=== PATIENT | male | born 1990 | race Caucasian/White ===

== ENCOUNTER 2019-06-28 15:13 | Emergency (ER) | payer OTHER, SELFPAY ==
[2019-06-28 15:42] LABS: #Eosinphils 0.4 thou/uL (0.0-0.7); #Lymphocytes 2.1 thou/uL (1.20-3.40); #Monocytes 0.6 thou/uL (0.11-0.59); #Neutrophils 4.5 thou/uL (1.40-6.50); %Basophils 0.5 % (0.0-1.0); %Eosinophils 5.4 % (0.0-10.0); %Lymphocytes 27.4 % (21.0-51.0); %Monocytes 7.4 % (0.0-10.0); %Neutrophils 59.4 % (42.0-75.0); Hemoglobin 14.9 g/dL (14.0-18.0); Mean Corpuscular HGB CONC 35.1 g/dL (32.0-36.0); Mean Corpuscular Volume 88.4 fL (78.0-98.0); Mean Platelet Volume 6.5 fL (7.4-10.4); Platelet Count 364 thou/uL (130-400); RBC Distribution Width 11.8 % (11.5-14.5); Red Blood Cell (RBC) Count 4.82 mill/uL (4.70-6.10); White Blood Cell (WBC) Count 7.5 thou/uL (4.8-10.8)
[2019-06-28 17:09] LABS: ALT (SGPT) 29 U/L (8-55); AST (SGOT) 16 U/L (5-34); Albumin 4.3 g/dL (3.5-5.0); Alkaline Phosphatase 71 U/L (40-110); Anion Gap 12 mmol/L (10-20); BUN (Urea Nitrogen) 12 mg/dL (8.9-20.6); Bilirubin, Total 0.4 mg/dL (0.2-1.2); CRP (Inflammatory) 0.55 mg/dL (= or < 0.5); Calc. Creatinine Clearance 0 mL/min (70-130); Calcium 9.4 mg/dL (7.8-10.44); Carbon Dioxide 26 mmol/L (22-29); Chloride 102 mmol/L (98-107); Estimated GFR-MDRD Greater than 90; Globulin 3.1 g/dL (2.4-3.5); Glucose 95 mg/dL (70-105); Potassium 3.7 mmol/L (3.5-5.1); Protein, Total 7.4 g/dL (6.0-8.3); Sodium 136 mmol/L (136-145)
--- NOTE | 2019-06-28 17:36 | RAD ---
LEFT TIBIA AND FIBULA: HISTORY: Left leg wound with edema and pain. FINDINGS: Evidence of skin disruption anteriorly. No fracture. No osseous abnormality. IMPRESSION: No evidence of osseous abnormality. POS: [id number]
== END 2019-06-28 18:45 | disposition home or self-care (01) ==
LOC: ERS 15:13
DX: L97.329 Non-pressure chronic ulcer of left ankle with unspecified severity (principal); F41.9 Anxiety disorder, unspecified; F32.9 Major depressive disorder, single episode, unspecified; Z79.899 Other long term (current) drug therapy
CPT/HCPCS: 36415; 80053; 85025; 85652; 86140

== ENCOUNTER 2023-03-07 11:37 | Emergency (ER) | payer BC, SELFPAY ==
[2023-03-07] MEDS ORDERED: Ketorolac Tromethamine 30 MG/ML VIAL ONE (12:06)
[2023-03-07] MEDS ORDERED: Dexameth. Sod Phosp. 10 MG/ML (CHEMO USE ONLY) ONE (12:24)
[2023-03-07 12:37] LABS: Hematocrit 42.5 % (42.0-52.0); Hemoglobin 14.6 g/dL (14.0-18.0); Manual Diff?? YES; Mean Corpuscular HGB CONC 34.4 g/dL (32.0-36.0); Mean Corpuscular Hemoglobin 29.9 pg (27.0-31.0); Mean Corpuscular Volume 86.9 fl (78.0-98.0); Mean Platelet Volume 9.8 fL (7.4-10.4); Platelet Count 215 10x3/uL (130-400); RBC Distribution Width 12.9 % (11.5-14.5); Red Blood Cell (RBC) Count 4.89 mill/uL (4.70-6.10); White Blood Cell (WBC) Count 17.6 10x3/uL (4.8-10.8)
[2023-03-07 12:39] LABS: Delete Auto Diff?? YES
[2023-03-07 13:04] LABS: MONO NEGATIVE CONTROL ZONE White (Negative) (White); MONO POSITIVE CONTROL Pink Line (Positive) (PINK/RED); Mononucleosis POSITIVE (NEGATIVE)
[2023-03-07 13:15] LABS: Band 21 % (5-11); Burr Cells SLIGHT = 2-5 cells HPF (0-1); CellaVision Operator ID LAB.MJL; Lymphocytes 29 % (21-51); Metamyelocyte 2 % (0-0); Monocytes 4 % (0-10); Myelocyte 1 % (0-0); Neutrophil 25 % (42-75); Platelet Adequacy Comment Platelets Normal; Polychromasia SLIGHT = 2-3 cells HPF (0-2); Reactive Lymphocytes 18 % (0-10); Total Cell Count 115
[2023-03-07 13:16] LABS: Albumin 3.6 g/dL (3.5-5.0)
[2023-03-07 13:18] LABS: Calcium 8.2 mg/dL (7.8-10.44); Chloride 101 mmol/L (98-107); Potassium 3.7 mmol/L (3.5-5.1); Sodium 133 mmol/L (136-145)
[2023-03-07 13:19] LABS: Globulin 3.2 g/dL (2.4-3.5); Glucose 103 mg/dL (70-105); Protein, Total 6.8 g/dL (6.0-8.3)
[2023-03-07 13:20] LABS: Anion Gap 15 mmol/L (10-20); Carbon Dioxide 21 mmol/L (22-29)
[2023-03-07 13:21] LABS: Bilirubin, Total 1.1 mg/dL (0.2-1.2)
[2023-03-07 13:22] LABS: Alkaline Phosphatase 280 U/L (40-110); Calc. Creatinine Clearance 0 mL/min (70-130); Estimated GFR 123
[2023-03-07 13:23] LABS: BUN (Urea Nitrogen) 13 mg/dL (8.9-20.6)
[2023-03-07 13:24] LABS: AST (SGOT) 118 U/L (5-34)
[2023-03-07 13:25] LABS: ALT (SGPT) 277 U/L (8-55); CK (CPK) Less than 9 U/L (30-200)
== END 2023-03-07 13:54 | disposition home or self-care (01) ==
LOC: ERS 11:37
DX: B27.90 Infectious mononucleosis, unspecified without complication (principal); R94.5 Abnormal results of liver function studies; R59.0 Localized enlarged lymph nodes; D72.829 Elevated white blood cell count, unspecified
CPT/HCPCS: 36415; 80053; 82550; 85025; 86308; 93005; 96361; 96374; 96375; J1100; J1885

== ENCOUNTER 2023-03-09 08:30 | Inpatient (IN) | payer BC, SELFPAY ==
[2023-03-09] MEDS ORDERED: Ketorolac Tromethamine 30 MG/ML VIAL ONE (09:22)
[2023-03-09] MEDS ORDERED: Dexamethasone 10 MG/ML VIAL ONE (09:22)
[2023-03-09 09:27] LABS: Hematocrit 42.2 % (42.0-52.0); Hemoglobin 14.9 g/dL (14.0-18.0); Manual Diff?? YES; Mean Corpuscular HGB CONC 35.3 g/dL (32.0-36.0); Mean Corpuscular Hemoglobin 29.6 pg (27.0-31.0); Mean Corpuscular Volume 83.9 fl (78.0-98.0); Mean Platelet Volume 9.7 fL (7.4-10.4); Platelet Count 251 10x3/uL (130-400); RBC Distribution Width 13.1 % (11.5-14.5); Red Blood Cell (RBC) Count 5.03 mill/uL (4.70-6.10); White Blood Cell (WBC) Count 17.3 10x3/uL (4.8-10.8)
[2023-03-09 09:29] LABS: Delete Auto Diff?? YES
[2023-03-09 09:51] LABS: ALT (SGPT) 290 U/L (8-55); AST (SGOT) 89 U/L (5-34); Albumin 3.9 g/dL (3.5-5.0); Alkaline Phosphatase 239 U/L (40-110); Anion Gap 16 mmol/L (10-20); BUN (Urea Nitrogen) 10 mg/dL (8.9-20.6); Bilirubin, Total 1.8 mg/dL (0.2-1.2); Calc. Creatinine Clearance 0 mL/min (70-130); Calcium 9.2 mg/dL (7.8-10.44); Carbon Dioxide 23 mmol/L (22-29); Chloride 98 mmol/L (98-107); Estimated GFR 123; Globulin 4.4 g/dL (2.4-3.5); Glucose 100 mg/dL (70-105); Potassium 3.9 mmol/L (3.5-5.1); Protein, Total 8.3 g/dL (6.0-8.3); Sodium 133 mmol/L (136-145)
[2023-03-09 11:18] LABS: Band 8 % (5-11); Lymphocytes 49 % (21-51); Metamyelocyte 1 % (0-0); Monocytes 15 % (0-10); Neutrophil 16 % (42-75); Reactive Lymphocytes 10 % (0-10)
[2023-03-09] MEDS ORDERED: HYDROmorphone 0.5 MG/0.5 ML SYRINGE ONE (11:40)
[2023-03-09] MEDS ORDERED: Iopamidol-370 76% 500 ML MDV (1 ML CHARGE) ONE (12:37)
[2023-03-09] MEDS ORDERED: Ampicillin/Sulbactam 3 GM in Sodium Chloride 0.9% 100 ML IVPB SCH (14:00)
[2023-03-09] MEDS ORDERED: Senokot S 8.6-50 MG TAB PO PRN (14:01)
[2023-03-09] MEDS ORDERED: Bisacodyl 10 MG SUPP PR PRN (14:01)
[2023-03-09] MEDS ORDERED: Bisacodyl 5 MG TAB PO PRN (14:01)
[2023-03-09] MEDS ORDERED: Acetaminophen 325 MG TAB PO PRN (14:01)
[2023-03-09 14:40] VITALS: BMI 44.0
[2023-03-09] MEDS: Ampicillin/Sulbactam 3 GM in Sodium Chloride 0.9% 100 ML IVPB SCH ×2 (15:03→21:13)
[2023-03-09] MEDS: Lactated Ringer's 1,000 ML IV SCH ×2 (15:03→23:24)
[2023-03-09 16:20] LABS: HBCM Index 0.33 S/CO (0-0.79); HBSAg Index 0.26 S/CO (0-0.99); HIV (1/2) Antibody/Antigen Non-Reactive (NonReactive); Hep A IgM AB Non-Reactive S/CO (NonReactive); Hep A IgM S/CO 0.24 S/CO (0-0.79); Hep B Surf Ag Non-Reactive S/CO (NonReactive); Hep C IgG Ab Non-Reactive S/CO (NonReactive); Hep C Index 0.12 S/CO (0-0.79); Hepatitis B Core IgM Abs Non-Reactive S/CO (NonReactive)
[2023-03-09] MEDS ORDERED: Phenol 118 ML BOT PO PRN (18:05)
[2023-03-09] MEDS ORDERED: Lorazepam 2 MG/ML VIAL SLOW IVP SCH (20:00)
[2023-03-09] MEDS ORDERED: Ketorolac Tromethamine 30 MG/ML VIAL IVP SCH (20:00)
[2023-03-10] MEDS: Ampicillin/Sulbactam 3 GM in Sodium Chloride 0.9% 100 ML IVPB SCH ×4 (02:11→21:00)
[2023-03-10 06:42] LABS: Hematocrit 39.1 % (42.0-52.0); Hemoglobin 13.4 g/dL (14.0-18.0); Manual Diff?? YES; Mean Corpuscular HGB CONC 34.3 g/dL (32.0-36.0); Mean Corpuscular Hemoglobin 29.3 pg (27.0-31.0); Mean Corpuscular Volume 85.6 fl (78.0-98.0); Mean Platelet Volume 9.7 fL (7.4-10.4); Platelet Count 261 10x3/uL (130-400); RBC Distribution Width 13.1 % (11.5-14.5); Red Blood Cell (RBC) Count 4.57 mill/uL (4.70-6.10); White Blood Cell (WBC) Count 16.2 10x3/uL (4.8-10.8)
[2023-03-10 06:48] LABS: Delete Auto Diff?? YES
[2023-03-10 07:11] LABS: Anion Gap 16 mmol/L (10-20); BUN (Urea Nitrogen) 11 mg/dL (8.9-20.6); Calc. Creatinine Clearance 330 mL/min (70-130); Calcium 8.3 mg/dL (7.8-10.44); Carbon Dioxide 20 mmol/L (22-29); Chloride 102 mmol/L (98-107); Estimated GFR 127; Glucose 88 mg/dL (70-105); Potassium 3.9 mmol/L (3.5-5.1); Sodium 134 mmol/L (136-145)
[2023-03-10 07:20] LABS: Band 9 % (5-11); Lymphocytes 27 % (21-51); Monocytes 9 % (0-10); Neutrophil 13 % (42-75); Platelet Adequacy Comment Platelets Normal; Polychromasia SLIGHT = 2-3 cells HPF (0-2); Reactive Lymphocytes 42 % (0-10); Total Cell Count 100
[2023-03-10] MEDS: Lactated Ringer's 1,000 ML IV SCH ×3 (08:33→20:58)
[2023-03-10] MEDS ORDERED: Dexamethasone 10 MG/ML VIAL SLOW IVP SCH (09:00)
[2023-03-10] MEDS ORDERED: Dexamethasone 10 MG in Sodium Chloride 0.9% 50 ML IVPB SCH (09:00)
[2023-03-10 11:22] LABS: ALT (SGPT) 223 U/L (8-55); AST (SGOT) 97 U/L (5-34); Albumin 3.3 g/dL (3.5-5.0); Alkaline Phosphatase 215 U/L (40-110); Bilirubin, Direct 0.7 mg/dL (0.1-0.3); Bilirubin, Total 1.3 mg/dL (0.2-1.2); Protein, Total 7.3 g/dL (6.0-8.3)
[2023-03-10] MEDS ORDERED: Promethazine HCl 25 MG in Sodium Chloride 0.9% 50 ML IVPB PRN (12:28)
[2023-03-10] MEDS ORDERED: Ondansetron PF 4 MG/2 ML Vial IVP PRN (12:28)
[2023-03-10] MEDS: Ketorolac Tromethamine 30 MG/ML VIAL IVP PRN ×2 (12:41→21:01)
[2023-03-10] MEDS: Ibuprofen 100 MG/5 ML UDCUP PO SCH ×2 (12:41→21:07)
[2023-03-10] MEDS: methylPREDNISolone Sod Succ 40 MG VIAL IVP SCH ×2 (14:08→21:04)
[2023-03-10] MEDS ORDERED: Benzocaine/Menthol 1 LOZ LOZ PO PRN (15:31)
[2023-03-10] MEDS: Pantoprazole 40 MG VIAL IVP SCH (21:05)
[2023-03-11] MEDS: Ampicillin/Sulbactam 3 GM in Sodium Chloride 0.9% 100 ML IVPB SCH ×4 (03:14→20:07)
[2023-03-11] MEDS: Lactated Ringer's 1,000 ML IV SCH ×3 (03:15→20:06)
[2023-03-11] MEDS: Ibuprofen 100 MG/5 ML UDCUP PO SCH ×3 (06:20→20:14)
[2023-03-11] MEDS: methylPREDNISolone Sod Succ 40 MG VIAL IVP SCH ×3 (06:29→20:14)
[2023-03-11 07:51] LABS: #Monocytes 1.4 thou/uL (0.11-0.59); #Neutrophils 1.6 thou/uL (1.40-6.50); %Basophils 0.2 % (0.0-1.0); %Lymphocytes 75.8 % (21.0-51.0); %Monocytes 10.8 % (0.0-10.0); %Neutrophils 12.6 % (42.0-75.0); Hemoglobin 12.3 g/dL (14.0-18.0); Manual Diff?? YES; Mean Corpuscular HGB CONC 34.2 g/dL (32.0-36.0); Mean Corpuscular Hemoglobin 29.2 pg (27.0-31.0); Mean Corpuscular Volume 85.5 fl (78.0-98.0); Mean Platelet Volume 9.6 fL (7.4-10.4); Platelet Count 270 10x3/uL (130-400); RBC Distribution Width 12.9 % (11.5-14.5); Red Blood Cell (RBC) Count 4.21 mill/uL (4.70-6.10); White Blood Cell (WBC) Count 12.5 10x3/uL (4.8-10.8)
[2023-03-11 08:10] LABS: Anion Gap 13 mmol/L (10-20); BUN (Urea Nitrogen) 12 mg/dL (8.9-20.6); Calc. Creatinine Clearance 335 mL/min (70-130); Calcium 8.3 mg/dL (7.8-10.44); Carbon Dioxide 23 mmol/L (22-29); Chloride 104 mmol/L (98-107); Estimated GFR 128; Glucose 101 mg/dL (70-105); Potassium 3.7 mmol/L (3.5-5.1); Sodium 136 mmol/L (136-145)
[2023-03-11 08:16] LABS: ALT (SGPT) 216 U/L (8-55); AST (SGOT) 95 U/L (5-34); Albumin 3.2 g/dL (3.5-5.0); Alkaline Phosphatase 179 U/L (40-110); Bilirubin, Direct 0.4 mg/dL (0.1-0.3); Bilirubin, Total 0.7 mg/dL (0.2-1.2); Protein, Total 6.4 g/dL (6.0-8.3)
[2023-03-11 08:43] LABS: Band 11 % (5-11); CellaVision Operator ID LAB.CMB; Large Platelets 0.9 % (0-5); Lymphocytes 40 % (21-51); Monocytes 11 % (0-10); Neutrophil 34 % (42-75); Nucleated RBC (Manual Ct) 1 % (0); Platelet Adequacy Comment Platelets Normal; Polychromasia MODERATE = 3-4 cells HPF (0-2); Reactive Lymphocytes 5 % (0-10); Total Cell Count 114
[2023-03-11] MEDS: Pantoprazole 40 MG VIAL IVP SCH ×2 (08:51→20:14)
[2023-03-12] MEDS: Ampicillin/Sulbactam 3 GM in Sodium Chloride 0.9% 100 ML IVPB SCH ×3 (02:38→15:05)
[2023-03-12] MEDS: Lactated Ringer's 1,000 ML IV SCH ×2 (02:38→15:17)
[2023-03-12] MEDS: Ibuprofen 100 MG/5 ML UDCUP PO SCH ×2 (05:51→10:19)
[2023-03-12] MEDS: methylPREDNISolone Sod Succ 40 MG VIAL IVP SCH ×2 (05:52→13:28)
[2023-03-12 06:26] LABS: Hematocrit 37.1 % (42.0-52.0); Hemoglobin 12.5 g/dL (14.0-18.0); Manual Diff?? YES; Mean Corpuscular HGB CONC 33.7 g/dL (32.0-36.0); Mean Corpuscular Hemoglobin 29.1 pg (27.0-31.0); Mean Corpuscular Volume 86.3 fl (78.0-98.0); Mean Platelet Volume 9.7 fL (7.4-10.4); Platelet Count 292 10x3/uL (130-400); White Blood Cell (WBC) Count 14.1 10x3/uL (4.8-10.8)
[2023-03-12 06:31] LABS: Delete Auto Diff?? YES
[2023-03-12 06:57] LABS: ALT (SGPT) 284 U/L (8-55); AST (SGOT) 129 U/L (5-34); Albumin 3.1 g/dL (3.5-5.0); Alkaline Phosphatase 167 U/L (40-110); Anion Gap 13 mmol/L (10-20); BUN (Urea Nitrogen) 10 mg/dL (8.9-20.6); Bilirubin, Total 0.7 mg/dL (0.2-1.2); Calc. Creatinine Clearance 320 mL/min (70-130); Calcium 8.3 mg/dL (7.8-10.44); Carbon Dioxide 26 mmol/L (22-29); Chloride 103 mmol/L (98-107); Estimated GFR 126; Globulin 3.4 g/dL (2.4-3.5); Glucose 94 mg/dL (70-105); Magnesium 2.1 mg/dL (1.6-2.6); Potassium 3.9 mmol/L (3.5-5.1); Protein, Total 6.5 g/dL (6.0-8.3); Sodium 138 mmol/L (136-145)
[2023-03-12 08:39] LABS: Band 1 % (5-11); Hypochromia SLIGHT = 6-15 cells (100X) (0-5/hpf); Neutrophil 6 % (42-75)
[2023-03-12 08:40] LABS: Lymphocytes 81 % (21-51); Monocytes 7 % (0-10); Reactive Lymphocytes 5 % (0-10)
[2023-03-12 08:41] LABS: Platelet Adequacy Comment Platelets Normal
[2023-03-12] MEDS: Pantoprazole 40 MG VIAL IVP SCH (09:26)
[2023-03-12 16:54] VITALS: BP 141/87; TEMP 97.8
== END 2023-03-12 16:25 | disposition home or self-care (01) | DRG 865 ==
LOC: ERS 08:30 → T4-B 13:32 → OBSVTOIN 03-10 08:01
PROVIDERS: ADMIT Hospitalist; ATTEND Internal Medicine
DX: B27.09 Gammaherpesviral mononucleosis with other complications (principal); K72.00 Acute and subacute hepatic failure without coma; J35.1 Hypertrophy of tonsils; R79.89 Other specified abnormal findings of blood chemistry; J02.9 Acute pharyngitis, unspecified; R13.10 Dysphagia, unspecified; Z88.8 Allergy status to other drugs, medicaments and biological substances; Z98.890 Other specified postprocedural states; Z79.899 Other long term (current) drug therapy; R59.0 Localized enlarged lymph nodes
CPT/HCPCS: 36415; 70491; 71045; 76705; 80048; 80053; 80074; 80076; 82550; 83605; 83735; 85025; 86308; 87081; 87389; 87430; 93005; 96361; 96372; 96374; 96375; 96376; C9113; G0378; J0295; J1100; J1170; J1650; J1885; J2060; J2920; J3490; J7120; Q9967